=== PATIENT | female | born 2000 | race Two or more races ===

== ENCOUNTER 2025-02-26 19:19 | Emergency (ER) | payer OTHER ==
[~2025-02-26] VITALS: Ht 160 cm; Wt 60.1 kg
--- NOTE | 2025-02-26 19:48 | ED.PDOC ---
History of Present Illness HPI Comments 24-year-old female who came to ER for vaginal bleeding. Patient has a history of ovarian cyst. Patient states her regular menstrual cycle ended last February 14, but for the past 3 days she has been experiencing vaginal bleeding again, profuse, with blood clots, consuming over 15 pads per day. Patient has started experiencing weakness and dizziness today. Complaining also chills, nausea and shortness of breath. Denies any headaches or any possibility of . REVIEW OF SYSTEMS: General: No fever, + chills, or fatigue HEENT: No sore throat, no earache, no congestion, no neck pain. Cardiac: No chest pain. No palpitations. Lungs: + shortness of breath, no cough. GI: + nausea, no vomiting, no diarrhea, no constipation, no abdominal pain : + heavy vaginal bleeding,+ pelvic pain. No dysuria, frequency, or urgency. No hematuria. Musculoskeletal: No joint pain , no joint swelling, no extremity edema. Skin: No rash, no itching. Neuro: No headache, + dizziness, + generalized weakness (And as sated in HPI) PHYSICAL EXAM: General: Awake, alert and oriented. No acute distress. Skin: Skin in warm, dry and intact without rashes or lesions. HEENT: The head is normocephalic and atraumatic. Conjunctivae are clear without exudates or hemorrhage. Sclera is non-icteric. Neck: Normal range of motion. No JVD. Cardiac: Regular rate Respiratory: No signs of respiratory distress. No Stridor. Abdominal: Right lower quadrant, left lower quadrant and suprapubic tenderness Extremities: Upper and lower extremities are atraumatic in appearance without deformity. Neurological: The patient is awake, alert and oriented to person, place, and time with normal speech. Speech is clear. There is no facial asymmetry. Psychiatric: Appropriate mood and affect. Good judgement and insight. Chief Complaint: Vaginal Bleed Time Seen by MD: 19:48 Reviewed Notes: Nurses Notes Allergies: Coded Allergies: Morphine (Verified Allergy, Unknown, 02/26/25) Shellfish Allergy (Verified Allergy, Unknown, 02/26/25) Information Source: Patient Mode of Arrival: Ambulatory Past Medical History PAST MEDICAL HISTORY: High Lipids Surgical History (Other): Ovarian cyst surgery. 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 Was a procedure done?: No Differential Dx Considerations may include: Differential diagnoses considered include but are not limited to threatened , incomplete , missed , ectopic , ruptured ectopic , urinary tract infection, subchorionic hemorrhage, abnormal uterine bleeding, STI, trauma, vaginitis, other. X-Ray, Labs, Meds, VS Vital Signs Date Time Temp Pulse Resp B/P (MAP) Pulse Ox O2 Delivery O2 Flow Rate FiO2 02/26/25 21:00 85 16 100 Room Air* 0 21 02/26/25 20:59 98.3 85 16 123/77 (92) 100 98.3 02/26/25 19:21 97.6 91 16 132/83 93 97.6 Lab Test 02/26/25 20:02 02/26/25 19:43 Range/Units White Blood Count 7.6 4.4-10.8 10^3/uL Red Blood Count 5.02 4.0-5.20 10^6/uL Hemoglobin 13.9 12.2-16.2 g/dL Hematocrit 42.1 36.0-46.0 % Mean Corpuscular Volume 83.8 80.0-100.0 fL Mean Corpuscular Hemoglobin 27.7 L 28.0-32.0 pg Mean Corpuscular Hemoglobin Concent 33.0 32.0-36.0 g/dL Red Cell Distribution Width 13.0 11.8-14.3 % Platelet Count 219 140-450 10^3/uL Mean Platelet Volume 7.7 6.9-10.8 fL Neutrophils (%) (Auto) 42.7 37.0-80.0 % Lymphocytes (%) (Auto) 45.4 10.0-50.0 % Monocytes (%) (Auto) 9.3 0.0-12.0 % Eosinophils (%) (Auto) 1.9 0.0-7.0 % Basophils (%) (Auto) 0.7 0.0-2.0 % Neutrophils # (Auto) 3.2 1.6-8.6 10 ^3/uL Lymphocytes # (Auto) 3.4 0.4-5.4 10 ^3/uL Monocytes # (Auto) 0.7 0-1.3 10 ^3/uL Eosinophils # (Auto) 0.1 0-0.8 10 ^3/uL Basophils # (Auto) 0.1 0-0.2 10 ^3/uL Nucleated Red Blood Cells 0.3 % Sodium Level 142 136-145 mmol/L Potassium Level 4.2 3.5-5.1 mmol/L Chloride Level 105 98-107 mmol/L Carbon Dioxide Level 27 20-31 mmol/L Anion Gap 10 5-15 Blood Urea Nitrogen 14 9-23 mg/dL Creatinine 0.59 0.550-1.02 mg/dL Glomerular Filtration Rate Calc 130 >90 mL/min BUN/Creatinine Ratio 23.7 H 10.0-20.0 Serum Glucose 94 74-106 mg/dL Calcium Level 9.6 8.7-10.4 mg/dL Urine Color Light-brown Yellow Urine Clarity Turbid H Clear Urine pH 6.0 5.0-9.0 Urine Specific [place] 1.026 1.001-1.035 Urine Protein Negative Negative Urine Ketones Negative Negative Urine Blood 3+ H Negative /uL Urine Nitrite Negative Negative Urine Bilirubin Negative Negative Urine Urobilinogen Normal Negative mg/dL Urine Leukocyte Esterase Negative Negative /uL Urine RBC 1252 0 - 4 /hpf Urine Microscopic WBC 1 0-5 /HPF Urine Squamous Epithelial Cells Few <5 /hpf Urine Bacteria Few H None Seen /hpf Urine Mucus Few None Seen Urine Glucose Normal Normal mg/dL Urine Test Negative Negative Current Medications Medications (Trade) Dose Ordered Sig/Mario Route Start Time Stop Time Status Last Admin Acetaminophen (Tylenol Tablet Or Capsule) 1,000 mg ONCE ONCE PO 02/26/25 19:45 02/26/25 19:46 DC 02/26/25 20:59 PROCEDURE(s): PELUS - PELVIC REASON: Pelvic pain, heavy vaginal bleeding, history ovarian cysts ORDER NUMBER(s): [id number], ACCESSION NUMBER(s): [id number] CLINICAL HISTORY: Pelvic pain, heavy vaginal bleeding, history ovarian cysts TECHNIQUE: Ultrasound examination of the female pelvis was performed transabdominally WID: COMPARISON: None FINDINGS: Anteverted uterus measuring 7.1 x 2.9 x 4.1 cm. 4 mm endometrial stripe. The uterus is unremarkable. Left ovary is 2.6 x 1.6 x 2.7 cm. cm. Right ovary is measures 5.3 x 4.9 x 5.9 cm. There is a complex right ovarian cyst measuring 5.4 by 3.9 cm with lacy-reticular septations. Normal color Doppler flow in vascular waveforms are present bilaterally. Cul-de-sac is grossly normal. IMPRESSION: Findings most compatible with 5.4 cm right ovarian hemorrhagic cyst. Time of 1ST Reevaluation: 19:44 Reevaluation 1ST: Unchanged Patient Education/Counseling: Need For Follow Up Family Education/Counseling: No Family Present SEPSIS Sepsis Screen Date sepsis recognized/suspect: Feb 26, 2025 Time Sepsis recognized/suspect: 1920 Recent Procedure: No On Antibiotic Therapy: No Respiratory Rate >20: No Heart Rate >90: No Temp<36 C (96.8 F) or >38.3 C: No SBP <90 or MAP <65 mmHG: No New Acute Mental Status Change: No Is the patient on CPAP, BIPAP,: No Physician Orders Pelvic (02/26/25 19:35) Tramadol Hcl (Ultram) (02/26/25 21:30) Vital Signs Date Time Temp Pulse Resp B/P (MAP) Pulse Ox O2 Delivery O2 Flow Rate FiO2 02/26/25 21:00 85 16 100 Room Air* 0 21 02/26/25 20:59 98.3 85 16 123/77 (92) 100 98.3 02/26/25 19:21 97.6 91 16 132/83 93 97.6 Laboratory Tests Test 02/26/25 20:02 White Blood Count 7.6 10^3/uL (4.4-10.8) Medications Medications Dose Ordered Sig/Mario Route Start Time Stop Time Status Last Admin Dose Admin Acetaminophen 1,000 mg ONCE ONCE PO 02/26/25 19:45 02/26/25 19:46 DC 02/26/25 20:59 Departure 1 Departure Time of Disposition: 21:34 Impression: Primary Impression: Hemorrhagic cyst of right ovary Additional Impression: Abnormal uterine bleeding Disposition: HOME / SELF CARE / HOMELESS Condition: Stable Additional Instructions: ED DISCHARGE INSTRUCTIONS Instructions: Please read all instructions provided in this packet carefully. Although you have been discharged from the Emergency Department, this does not mean that you have a "clean bill of health". []No definitive diagnosis for your symptoms has been made today. It is possible that you are in the process of developing a serious illness. This is why you must return to the ED without fail if any new or worsening symptoms (especially if your symptoms include chest pain, trouble breathing, abdominal pain, fever, headache, confusion, trouble seeing, or trouble walking) It is also very important that you see a primary care provider (PCP) within the next 3-5 days to follow up. If you are unable to get an appointment, return to the ED for re-evaluation. Return to the emergency department if you continued to have severe heavy bleeding over the next 72 hours. Abnormal Uterine Bleeding: Care Instructions Overview Abnormal uterine bleeding is irregular bleeding from the uterus. It may be blee ding that is heavier, flight attendant, or lasts longer than your usual period. Or it may be bleeding that doesn't occur at your regular time. Sometimes it is caused by changes in hormone levels. It can also be caused by growths in the uterus, such as fibroids or polyps. Sometimes a cause cannot be found. You may have bleeding when you are not expecting your period. Your doctor may suggest a test. Follow-up care is a corley part of your treatment and safety. Be sure to make and go to all appointments, and call your doctor if you are having problems. It's also a good idea to know your test results and keep a list of the medicines you take. How can you care for yourself at home? Be safe with medicines. Take pain medicines exactly as directed. If the doctor gave you a prescription medicine for pain, take it as prescribed. If you are not taking a prescription pain medicine, ask your doctor if you can take an [id number] medicine. You may be low in iron because of blood loss. Eat a balanced diet that is high in iron and vitamin C. Foods rich in iron include red meat, shellfish, eggs, beans, and leafy green vegetables. Talk to your doctor about whether you need to take iron pills or a multivitamin. When should you call for help? Call 911 anytime you think you may need emergency care. For example, call if: You passed out (lost consciousness). Call your doctor now or seek immediate medical care if: You have new or worse belly or pelvic pain. You have severe vaginal bleeding. You feel dizzy or lightheaded, or you feel like you may faint. Watch closely for changes in your health, and be sure to contact your doctor if: You think you may be . Your bleeding gets worse. You do not get better as expected. Credits for Abnormal Uterine Bleeding: Care Instructions Current as of: July 14, 2024 Author: [employer] Staff Clinical Review Board All [employer] education is reviewed by a team that includes physicians, nurses, advanced practitioners, registered dieticians, and other healthcare professionals. . PATIENT: ANGIE LOPEZ ACCT: [id number] UNIT: [id number] PROCEDURE(s): PELUS - PELVIC REASON: Pelvic pain, heavy vaginal bleeding, history ovarian cysts ORDER NUMBER(s): [id number], ACCESSION NUMBER(s): [id number] CLINICAL HISTORY: Pelvic pain, heavy vaginal bleeding, history ovarian cysts TECHNIQUE: Ultrasound examination of the female pelvis was performed transabdominally WID: COMPARISON: None FINDINGS: Anteverted uterus measuring 7.1 x 2.9 x 4.1 cm. 4 mm endometrial stripe. The uterus is unremarkable. Left ovary is 2.6 x 1.6 x 2.7 cm. cm. Right ovary is measures 5.3 x 4.9 x 5.9 cm. There is a complex right ovarian cyst measuring 5.4 by 3.9 cm with lacy-reticular septations. Normal color Doppler flow in vascular waveforms are present bilaterally. Cul-de-sac is grossly normal. IMPRESSION: Findings most compatible with 5.4 cm right ovarian hemorrhagic cyst. e-Prescriptions Ibuprofen (Ibuprofen) 600 Mg Tab 1 TAB PO TID PRN for 3 Days, #9 TAB Prov: DAREN PRADHAN MD 02/26/25 Acetaminophen (Acetaminophen Er) 650 Mg Tab 650 MG PO TIDPRN PRN, #15 TAB Prov: DAREN PRADHAN MD 02/26/25 Comments Discussed with the patient pharmacological management of abnormal uterine bleeding at this time however patient declines. Given patient normal vital signs, normal H&H, home mental status patient is felt stable for discharge home to follow up with forensic medical examiner. She is advised to return to the emergency department with any concerning symptoms. Critical Care Note Critical Care Time?: No Stability Stability form required: No Heart Score Heart Score: Heart Score Response (Comments) Value History N/A 0 EKG N/A 0 Age N/A 0 Risk Factors N/A 0 Troponin N/A 0 Total 0 I personally scribed for DAREN PRADHAN MD ([email or web address]) on 02/26/25 at 19:48. Electronically submitted by Justin Paredes ([email or web address]). I personally scribed for DAREN PRADHAN MD ([email or web address]) on 02/26/25 at 21:21. Electronically submitted by Justin Paredes ([email or web address]). DAREN PRADHAN MD Feb 26, 2025 19:48
[2025-02-26 20:15] LABS: Urine Protein, UAD Negative (Negative)
[2025-02-26 20:44] LABS: Chloride 105 mmol/L (98-107); Potassium 4.2 mmol/L (3.5-5.1); Sodium 142 mmol/L (136-145)
[2025-02-26 20:45] LABS: Anion Gap 10 (5-15); Carbon Dioxide 27 mmol/L (20-31)
[2025-02-26 20:46] LABS: Calcium 9.6 mg/dL (8.7-10.4)
--- NOTE | 2025-02-26 20:46 | DVH ---
CLINICAL HISTORY: Pelvic pain, heavy vaginal bleeding, history ovarian cysts TECHNIQUE: Ultrasound examination of the female pelvis was performed transabdominally WID: COMPARISON: None FINDINGS: Anteverted uterus measuring 7.1 x 2.9 x 4.1 cm. 4 mm endometrial stripe. The uterus is unremarkable. Left ovary is 2.6 x 1.6 x 2.7 cm. cm. Right ovary is measures 5.3 x 4.9 x 5.9 cm. There is a complex right ovarian cyst measuring 5.4 by 3.9 cm with lacy-reticular septations. Normal color Doppler flow in vascular waveforms are present bilaterally. Cul-de-sac is grossly normal. IMPRESSION: Findings most compatible with 5.4 cm right ovarian hemorrhagic cyst.
[2025-02-26 20:50] LABS: Glucose 94 mg/dL (74-106)
[2025-02-26 20:51] LABS: BUN/Creatinine Ratio 23.7 (10.0-20.0); Blood Urea Nitrogen 14 mg/dL (9-23)
[2025-02-26 20:53] LABS: Hematocrit 42.1 % (36.0-46.0); Hemoglobin 13.9 g/dL (12.2-16.2); Mean Corpuscular Hemoglobin 27.7 pg (28.0-32.0); Mean Corpuscular Volume 83.8 fL (80.0-100.0); Nucleated Red Blood Cells % 0.3 %
[2025-02-26 20:59] VITALS: BP 123/77; TEMP 98.3
[2025-02-26] MEDS: ACETAMINOPHEN 500 MG TAB or CAP PO ONE (20:59)
[2025-02-26 21:00] VITALS: PULSE 85; RESP 16; O2SAT 100
[2025-02-26] MEDS ORDERED: IBUP-1454 PO (21:37)
[2025-02-26] MEDS ORDERED: ACET650T12 PO (21:37)
== END 2025-02-26 21:54 | disposition home or self-care (01) ==
LOC: ER 19:19
DX: N93.9 Abnormal uterine and vaginal bleeding, unspecified (principal); N83.201 Unspecified ovarian cyst, right side; E78.5 Hyperlipidemia, unspecified; Z98.890 Other specified postprocedural states; Z88.5 Allergy status to narcotic agent
CPT/HCPCS: 36415; 76856; 80048; 81001; 81025; 85025